=== PATIENT | male | born 1970 | race Two or more races ===

== ENCOUNTER 2017-11-28 19:56 | Inpatient (IN) | payer OTHER ==
[~2017-11-28] VITALS: Ht 193 cm; Wt 142.0 kg
[~2017-11-28 19:56] MED LIST: UNOBMED
[2017-11-28 20:00] VITALS: BP 143/106
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
[2017-11-28] MEDS ORDERED: LORazepam 1mg tab ORAL ONE (20:15)
[2017-11-28 21:15] VITALS: BP 158/95
[2017-11-28 21:30] LABS: BASOPHILS % (AUTO) 0.7 % (0.0-2.0); EOSINOPHILS % (AUTO) 1.3 % (0.0-3.0); HEMOGLOBIN 11.9 G/DL (14.2-18.0); LYMPHOCYTES % (AUTO) 14.8 % (20.0-45.0); MEAN CORPUSCULAR VOLUME 95 FL (80-99); MONOCYTES % (AUTO) 9.3 % (1.0-10.0); NEUTROPHILS % (AUTO) 73.8 % (45.0-75.0); PLATELET COUNT 271 K/UL (150-450); RED BLOOD COUNT 3.67 M/UL (4.70-6.10); RED CELL DISTRIBUTION WIDTH 11.9 % (11.6-14.8); WHITE BLOOD COUNT 10.5 K/UL (4.8-10.8)
[2017-11-28 21:31] LABS: ANION GAP 9 mmol/L (5-15); BLOOD UREA NITROGEN 16 mg/dL (7-18); CALCIUM 9.5 MG/DL (8.5-10.1); CARBON DIOXIDE 25 MMOL/L (21-32); CHLORIDE 101 MMOL/L (98-107); CREATININE 1.5 MG/DL (0.55-1.30); POTASSIUM 3.3 MMOL/L (3.5-5.1); SODIUM 135 MMOL/L (136-145)
[2017-11-28 21:45] LABS: ALANINE AMINOTRANSFERASE 123 U/L (12-78); ALBUMIN 3.4 G/DL (3.4-5.0); ALBUMIN/GLOBULIN RATIO 0.8 (1.0-2.7); ALKALINE PHOSPHATASE 130 U/L (46-116); ASPARTATE AMINO TRANSFERASE 87 U/L (15-37); BILIRUBIN,TOTAL 1.5 MG/DL (0.2-1.0); CKMB 1.4 NG/ML (0.0-3.6); CREATINE KINASE 305 U/L (26-308)
[2017-11-28 21:49] LABS: BILIRUBIN,DIRECT 0.3 MG/DL (0.0-0.3)
[2017-11-28] MEDS ORDERED: Nitroglycerin Subl 0.4mg tab SL PRN (22:00)
[2017-11-28] MEDS ORDERED: Morphine Sulfate 4mg/ml Inj IVP ONE (22:45)
[2017-11-28 23:51] VITALS: BP 156/109
[2017-11-29] VITALS (7 sets, daily range): BP systolic 140–156; BP diastolic 91–110
[2017-11-29] MEDS ORDERED: ASPIR 8181 MG ORAL (01:35)
[2017-11-29] MEDS ORDERED: LIPITOR80 MG ORAL (01:35)
[2017-11-29] MEDS ORDERED: PLAVIX75 MG ORAL (01:35)
[2017-11-29] MEDS ORDERED: AMLODIPINE BESYL5 MG ORAL (01:36)
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
[2017-11-29] MEDS ORDERED: Miralax 17gm pkt ORAL PRN (06:30)
[2017-11-29] MEDS ORDERED: Ketorolac 30mg Inj IV PRN (06:30)
[2017-11-29] MEDS ORDERED: Albuterol/Ipratropium 3ml neb HHN PRN (06:30)
[2017-11-29] MEDS ORDERED: dilTIAZem HCl 25mg/5ml Inj IV PRN (06:30)
[2017-11-29] MEDS ORDERED: Nitroglycerin Subl 0.4mg tab SL PRN (06:30)
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
[2017-11-29] MEDS ORDERED: Aspirin EC 81mg tab ORAL SCH (09:00)
[2017-11-29] MEDS: Aspirin Baby 81mg ORAL SCH (09:10)
[2017-11-29] MEDS: Heparin 5000 units/ml inj SUBQ SCH ×2 (09:12→20:15)
--- NOTE | 2017-11-29 09:27 | Diagnostic Imaging Report ---
Indication: Chest pain Technique: XRAY Chest 1v Comparison: None Findings: Limited exam as low lung volumes and underpenetration, likely related to large body habitus. There is cardiomegaly. Mediastinal contours appear sharp. There is possible mild pulmonary vascular congestion, possibly exaggerated by low lung volumes.. No definite focal airspace consolidation. No large pleural effusion. No pneumothorax. Impression: Limited exam. Cardiomegaly. Question mild pulmonary vascular congestion, possibly artifactually exaggerated due to low lung volumes. Repeat exam with improved inspiratory effort may be obtained for better evaluation as clinically indicated. Study obtained via the emergency department however patient admitted to the hospital at time of dictation of the final report.
--- NOTE | 2017-11-29 14:34 | Cardiology Report ---
APPROVED REPORT EXAM: Two-dimensional and M-mode echocardiogram with Doppler and color Doppler. INDICATION LV FUNCTION M-Mode DIMENSIONS IVSd1.4 (0.7-1.1cm)Left Atrium (MM)2.8 (1.6-4.0cm) LVDd6.3 (3.5-5.6cm)Aortic Root4.7 (2.0-3.7cm) PWd1.7 (0.7-1.1cm)Aortic Cusp Exc.2.5 (1.5-2.0cm) IVSs2.8 cm LVDs3.7 (2.5-4.0cm) PWs1.8 cm Normal left ventricular chamber size, systolic function and wall motion. Left ventricular ejection fraction estimated to be 60-65 %. Mild left ventricular hypertrophy by 2-D. No evidence of pericardial effusion All other cardiac chamber sizes are within normal limits. Focal aortic valve sclerosis with adequate cusp excursion. Mild Thickened mitral valve leaflets with normal excursion. Mild Mitral annulus and aortic root calcification. Pulmonic valve not well visualized. Normal tricuspid valve structure. IVC at normal size with slightly physiologic collapse. A color flow and spectral Doppler study was performed and revealed: No aortic regurgitation. Trace mitral regurgitation. Mitral diastolic velocities suggest reduced left ventricular relaxation c/w mild LV diastolic dysfunction (Grade I ). Trace tricuspid regurgitation. Tricuspid systolic velocities suggests peak right ventricular systolic pressure of 11 mmHg No Pulmonic regurgitation present.
[2017-11-29] MEDS: Morphine Sulfate 2mg/ml Inj IVP PRN (19:33)
[2017-11-29] MEDS: Enalaprilat 2.5mg/2ml Inj IV PRN (20:13)
[2017-11-30] VITALS: BP 144/90
[2017-11-30 03:59] LABS: BASOPHILS % (AUTO) 0.8 % (0.0-2.0); HEMATOCRIT 33.8 % (42.0-52.0); HEMOGLOBIN 11.7 G/DL (14.2-18.0); LYMPHOCYTES % (AUTO) 27.5 % (20.0-45.0); MEAN CORPUSCULAR VOLUME 96 FL (80-99); MONOCYTES % (AUTO) 10.6 % (1.0-10.0); NEUTROPHILS % (AUTO) 58.1 % (45.0-75.0); PLATELET COUNT 244 K/UL (150-450); RED BLOOD COUNT 3.54 M/UL (4.70-6.10)
[2017-11-30 04:00] VITALS: BP 150/93
[2017-11-30 04:34] LABS: INR 0.9 (0.9-1.1)
[2017-11-30 04:47] LABS: ALANINE AMINOTRANSFERASE 74 U/L (12-78); ALBUMIN/GLOBULIN RATIO 0.8 (1.0-2.7); ALKALINE PHOSPHATASE 106 U/L (46-116); ANION GAP 9 mmol/L (5-15); ASPARTATE AMINO TRANSFERASE 36 U/L (15-37); BILIRUBIN,TOTAL 1.2 MG/DL (0.2-1.0); BLOOD UREA NITROGEN 12 mg/dL (7-18); CARBON DIOXIDE 26 MMOL/L (21-32); CHLORIDE 102 MMOL/L (98-107); CHOLESTEROL 103 MG/DL (< 200); CREATININE 1.2 MG/DL (0.55-1.30); HDL CHOLESTEROL 41 MG/DL (40-60); SODIUM 137 MMOL/L (136-145); TRIGLYCERIDES 83 MG/DL (30-150)
[2017-11-30 04:52] LABS: BILIRUBIN,DIRECT 0.3 MG/DL (0.0-0.3)
[2017-11-30 05:39] LABS: PHOSPHORUS 3.6 MG/DL (2.5-4.9)
[2017-11-30 08:00] VITALS: BP 145/95
[2017-11-30] MEDS: Aspirin Baby 81mg ORAL SCH (08:33)
[2017-11-30] MEDS: Heparin 5000 units/ml inj SUBQ SCH ×2 (08:34→21:08)
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
[2017-11-30] MEDS: Morphine Sulfate 2mg/ml Inj IVP PRN ×2 (10:43→19:43)
[2017-11-30 12:00] VITALS: BP 153/95
[2017-11-30 16:00] VITALS: BP 141/96
[2017-11-30 20:00] VITALS: BP 147/103
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
[2017-11-30] MEDS ORDERED: Atorvastatin 80mg tab ORAL SCH (21:00)
[2017-12-01] VITALS: BP 143/100
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
[2017-12-01 04:00] VITALS: BP 137/86
[2017-12-01 05:50] LABS: CHOLESTEROL 123 MG/DL (< 200); HDL CHOLESTEROL 45 MG/DL (40-60); TRIGLYCERIDES 88 MG/DL (30-150)
[2017-12-01 08:00] VITALS: BP 146/102
[2017-12-01] MEDS: Aspirin Baby 81mg ORAL SCH (08:12)
[2017-12-01] MEDS: Heparin 5000 units/ml inj SUBQ SCH (08:15)
[2017-12-01] MEDS: Morphine Sulfate 2mg/ml Inj IVP PRN (08:15)
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
[2017-12-01] MEDS ORDERED: Tubing IV Secondary IV ONE (11:18)
[2017-12-01] MEDS ORDERED: NS 500ML ONE (11:18)
[2017-12-01 12:00] VITALS: BP 166/115
[2017-12-01] MEDS: Enalaprilat 2.5mg/2ml Inj IV PRN (12:44)
[2017-12-01 13:41] VITALS: BP 135/87
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
[2017-12-01 16:00] VITALS: BP 153/101
--- NOTE | 2017-12-01 16:57 | Cardiology Report ---
APPROVED REPORT EKG Measurement Heart [id number] Normal sinus rhythm Minimal voltage criteria for LVH, may be normal variant Nonspecific T wave abnormality Abnormal ECG
--- NOTE | 2017-12-03 12:58 | Discharge Summary ---
Discharge Summary Hospital Course Date of Admission Nov 28, 2017 at 22:33 Date of Discharge Dec 01, 2017 at 17:32 Admitting Diagnosis acute coronary syndrome/nstemi HPI Lloyd Osullivan is a 47 year old male who was admitted on Nov 28, 2017 at 22: 33 for Acute Coronary Syndrone/Nstemi Hospital Course [id number] Discharge Discharge Disposition Patient was discharged to Home (01) Discharge Diagnoses: Emily Dobson NP Dec 03, 2017 12:58
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
--- NOTE | 2017-12-04 14:51 | Cardiology Report ---
APPROVED REPORT EKG Measurement Heart [id number] 140P45 [id number] Normal sinus rhythm Minimal voltage criteria for LVH, may be normal variant Nonspecific T wave abnormality Abnormal ECG
--- NOTE | 2017-12-05 12:08 | Physician Query ---
--------- THIS DOCUMENT IS A PERMANENT PART OF THE MEDICAL RECORD --------- PLEASE COMPLETE THE DOCUMENT BEFORE SIGNING Dear Date 12/05/17 Transmission Superintendent/CDS' Name: SHERRY MISTRY,CCS Exercise your independent professional judgment when responding to query. Questions asked do not imply particular answer is desired or expected. We greatly appreciate your clarification on this issue. Clinical Documentation States: BIBEMS for chest pain admitted for further care and support and was admitted to [facility] in serious condition for evaluation of elevated troponin and acute coronary syndrome. Per Dr. Putnam Shingle Trimmer:chest pain indicates that it is probably not an acute coronary syndrome and the troponin elevation likely a result of remnants from his prior myocardial infarction in the past few days prior to this admission. Paperwork faxed from [facility] NSTEMI s/p cardiac cath. S/p DC there 3 days ago. Clinical Findings Show: EKG = EKG was minimally abnormal with T-wave inversions. Troponin = 3.441 ECHOCARDIOGRAM: normal left ventricular systolic function and mild diastolic relaxation abnormality. No significant valvular dysfunction. -- Please document the suspected etiology of Chest Pain: a.Type: []Cardiac []Non-cardiac []Unspecified b.Etiology - cardiac [ ] "Post" Myocardial Infarction Angina [ ] CAD with Angina [ ] Acute myocardial infarction [ ] CAD without Angina [ ] other: c.Etiology - non-cardiac [] Anxiety [] Costochondritis [] GERD/Esophagitis [] Unable to determine []Other: Please also document in your Progress Notes and/or Discharge Summary and indicate if the condition was present on admission. MIRALI ZARRABI, M.D. DATE & [facility]
--- NOTE | 2017-12-09 22:05 | Diagnostic Imaging Report ---
APPROVED REPORT CPT Code: 46772 Present Symptoms Comments: R/O DVT Technically difficult study due to vessel depth and post Angio right groin area. BILATERAL: Imaging reveals a patent deep venous system bilaterally. There is no evidence of thrombus within the femoral, popliteal or tibial segments. The greater saphenous veins are also within normal limits. Doppler indicates normal spontaneous flow within these segments.
--- NOTE | 2017-12-09 22:05 | Diagnostic Imaging Report ---
APPROVED REPORT CPT Code: 03026 Symptoms Comments: Exclude hematoma and AV fistula right groin Post Angio Comments Technically difficult study due to vessel depth and post Angio right groin area. 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 This appears to be a simple AV fistula. Fistula velocity is 48cm/sec. RIGHT LEG: Common femoral artery waveform analysis is within normal limits at rest. Color flow duplex sonography reveals patency of the superficial femoral, popliteal, and tibial arteries, there is no evidence of stenosis or occlusion within these segments. Doppler tibial artery waveform analysis (triphasic) is within normal limits, right leg. There is no evidence of significant arterial occlusive disease.
== END 2017-12-01 17:32 | disposition home or self-care (01) | DRG 203 ==
LOC: EDBD 19:56 → EMR 21:00 → 2W 22:33 → EDBEDREQ 11-29 02:18 → 2W 11-29 05:32
DX: M94.0 Chondrocostal junction syndrome [Tietze] (principal); I21.4 Non-ST elevation (NSTEMI) myocardial infarction; R07.89 Other chest pain; I10 Essential (primary) hypertension; K21.9 Gastro-esophageal reflux disease without esophagitis; I25.118 Atherosclerotic heart disease of native coronary artery with other forms of angina pectoris; Z79.02 Long term (current) use of antithrombotics/antiplatelets; Z95.5 Presence of coronary angioplasty implant and graft; I51.7 Cardiomegaly; R00.0 Tachycardia, unspecified; I77.0 Arteriovenous fistula, acquired; R06.4 Hyperventilation; Y08.09XA Assault by strike by other specified type of sport equipment, initial encounter; Y92.009 Unspecified place in unspecified non-institutional (private) residence as the place of occurrence of the external cause
CPT/HCPCS: 36415; 71045; 80053; 80061; 82248; 82550; 82553; 83735; 83880; 84100; 84443; 84484; 85025; 85610; 85651; 85730; 86140; 87081; 93005; 93306; 93926; 93970; 94664; 99285; J2405